=== PATIENT | female | born 1955 | race Asian ===

== ENCOUNTER 2017-04-25 11:40 | Emergency (ER) | payer OTHER ==
[~2017-04-25] VITALS: Ht 154.9 cm; Wt 75.3 kg
[~2017-04-25 11:40] MED LIST: CYCL5TAB PO; LOSA50TA6 PO
[2017-04-25 11:42] VITALS: BP 136/85
[2017-04-25] MEDS ORDERED: ACETAMINOPHEN 325 MG TABLET PO ONE (12:30)
[2017-04-25] MEDS ORDERED: ACETAMINOPHEN 325 MG TABLET ONE (12:40)
[2017-04-25 12:45] LABS: RAPID INFLUENZA A POSITIVE (Negative); RAPID INFLUENZA B Negative (Negative)
== END 2017-04-25 13:28 | disposition home or self-care (01) ==
LOC: ED 13:25
DX: J18.9 Pneumonia, unspecified organism (principal); J09.X2 Influenza due to identified novel influenza A virus with other respiratory manifestations; I10 Essential (primary) hypertension
CPT/HCPCS: 71020; 87400; 99285

== ENCOUNTER 2017-05-06 15:23 | Emergency (ER) | payer OTHER ==
[~2017-05-06] VITALS: Ht 154.9 cm; Wt 75.3 kg
[2017-05-06 15:33] VITALS: BP 142/83
== END 2017-05-06 16:15 | disposition home or self-care (01) ==
LOC: ED 16:10
DX: R05 Cough (principal); R09.81 Nasal congestion; R09.89 Other specified symptoms and signs involving the circulatory and respiratory systems; I10 Essential (primary) hypertension; Z77.22 Contact with and (suspected) exposure to environmental tobacco smoke (acute) (chronic)
CPT/HCPCS: 99283

== ENCOUNTER 2018-07-06 12:23 | Emergency (ER) | payer BC, OTHER ==
[~2018-07-06] VITALS: Ht 154.9 cm; Wt 76.4 kg
[~2018-07-06 12:23] MED LIST changes: +LOSA50TA14 PO; -LOSA50TA6 PO
[2018-07-06 13:00] VITALS: BP 152/91
[2018-07-06] MEDS ORDERED: HYDR25TA6 PO (14:23)
== END 2018-07-06 14:31 | disposition home or self-care (01) ==
LOC: ED 14:00
DX: J06.9 Acute upper respiratory infection, unspecified (principal); I10 Essential (primary) hypertension
CPT/HCPCS: 71046; 99283